=== PATIENT | male | born 1970 | race Caucasian/White ===

== ENCOUNTER 2017-10-20 16:12 | Emergency (ER) | payer OTHER ==
[~2017-10-20] VITALS: Ht 175.3 cm; Wt 108.0 kg
[2017-10-20] MEDS ORDERED: ZIAC 2.5-6.25 MG1 EA PO (16:26)
[2017-10-20] MEDS ORDERED: NORVASC10 MG PO (16:26)
[2017-10-20] MEDS ORDERED: ZESTRIL40 MG PO (16:26)
[2017-10-20] MEDS ORDERED: KEFLEX500 MG PO (16:58)
== END 2017-10-20 17:22 | disposition home or self-care (01) ==
LOC: ED 16:12
DX: I80.02 Phlebitis and thrombophlebitis of superficial vessels of left lower extremity (principal); Z79.899 Other long term (current) drug therapy
CPT/HCPCS: 93971; 99283